=== PATIENT | female | born 1945 | race Two or more races ===

== ENCOUNTER 2022-06-01 14:43 | Inpatient (IN) | payer MEDICARE ==
[~2022-06-01] VITALS: Ht 165.1 cm; Wt 65.8 kg
--- NOTE | 2022-06-01 15:31 | NUR ---
PT IN BED 12 TOLORATING ROOM AIR. C/O SI W/ ANXIETY. AT BEDSIDE. SUICIDE PROCAUTIONS IMPLEMENTED. CONNECTED TO BEDSIDE MONITOR
--- NOTE | 2022-06-01 15:44 | NUR ---
covid swab collected. lab called for fish bait picker.
[2022-06-01 16:05] LABS: BASOPHILS # (AUTO) 0.1 K/uL (0.0-0.2); BASOPHILS % (AUTO) 1.1 % (0.0-2.0); EOSINOPHILS % (AUTO) 0.2 % (0.0-6.0); HEMATOCRIT 43 % (33-45); HEMOGLOBIN 14.2 g/dL (11.5-14.8); LYMPHOCYTES % (AUTO) 15.9 % (20.0-44.0); MEAN CORPUSCULAR HGB CONC 33 g/dl (31.0-36.0); MEAN CORPUSCULAR VOLUME 88 fL (82-100); MONOCYTES # (AUTO) 1.1 K/uL (0.1-1.30); MONOCYTES % (AUTO) 8.8 % (2.0-12.0); NEUTROPHILS # (AUTO) 9.1 K/uL (1.8-8.9); PLATELET COUNT (AUTO) 355 K/uL (150-450); RED BLOOD CELL COUNT(AUTO) 4.81 MIL/uL (4.0-5.2); WHITE BLOOD COUNT (AUTO) 12.2 K/uL (4.3-11.0)
[2022-06-01 16:31] LABS: ALANINE AMINOTRANSFERASE 23 U/L (12-78); ALBUMIN 4.4 g/dL (3.4-5.0); ALKALINE PHOSPHATASE 100 U/L (46-116); ASPARTATE AMINOTRANSFERASE 23 U/L (15-37); BILIRUBIN,DIRECT 0.3 mg/dL (0.0-0.2); BILIRUBIN,TOTAL 1.1 mg/dL (0.2-1.0); CALCIUM, SERUM 10.6 mg/dL (8.5-10.1); CARBON DIOXIDE 30 mmol/L (21-32); CHLORIDE 92 mmol/L (98-107); GLUCOSE 114 mg/dL (74-106); POTASSIUM 3.1 mmol/L (3.5-5.1); SODIUM SERUM 133 mmol/L (136-145); TOTAL PROTEIN, SERUM 7.8 g/dL (6.4-8.2); UREA NITROGEN, BLOOD 23 mg/dL (7-18)
[2022-06-01 16:34] LABS: ACETAMINOPHEN 0 ug/ml (10-30); ALCOHOL, BLOOD < 3 mg/dL (0-0)
[2022-06-01] MEDS ORDERED: POTASSIUM CHLORIDE 20 MEQ TAB.PRT.SR PO ONE ×2 (17:00→18:27)
--- NOTE | 2022-06-01 18:07 | NUR ---
MOVE SHEET SUBMITTED.
--- NOTE | 2022-06-01 18:15 | NUR ---
URINE SAMPLE COLLECTED AND SENT TO LAB
--- NOTE | 2022-06-01 18:42 | NUR ---
ANDREW DAUGHTER [phone]
[2022-06-01 19:23] LABS: BILIRUBIN,URINE NEGATIVE (NEGATIVE); COLOR,URINE YELLOW (YELLOW); LEUKOCYTE ESTERASE ,URINE NEGATIVE (NEGATIVE); NITRITE, URINE NEGATIVE (NEGATIVE); PH,URINE 6.5 (5.0-8.0); PROTEIN,URINE NEGATIVE (NEGATIVE); UGLUCOSE NEGATIVE (NEGATIVE); UROBILINOGEN,URINE 0.2 EU/dL (0.2)
[2022-06-01] MEDS ORDERED: LORAZEPAM 1 MG TABLET ONE (23:16)
[2022-06-01] MEDS ORDERED: LORAZEPAM 1 MG TABLET PO ONE (23:30)
[2022-06-01] MEDS ORDERED: BUPR300T52 PO (23:38)
[2022-06-01] MEDS ORDERED: BUSP10TA35 PO (23:38)
[2022-06-01] MEDS ORDERED: LAMO100T2 PO (23:38)
[2022-06-01] MEDS ORDERED: AMLO10TA4 PO (23:38)
[2022-06-01] MEDS ORDERED: HYDR12.55 PO (23:38)
[2022-06-01] MEDS ORDERED: PRAV40TA3 PO (23:38)
[2022-06-01] MEDS ORDERED: VALB40CA2 PO (23:38)
[2022-06-01] MEDS ORDERED: LEVO112T2 PO (23:38)
[2022-06-01] MEDS ORDERED: LOSA100T31 PO (23:38)
--- NOTE | 2022-06-02 | NUR ---
room [id number]
--- NOTE | 2022-06-02 00:04 | NUR ---
report given to Victor Manuel LOMELI to continue care.
--- NOTE | 2022-06-02 00:32 | NUR ---
Patient wheeled via gurney accompanied by EMT in no distress.
--- NOTE | 2022-06-02 00:35 | NUR ---
GPS ADMISSION NOTE, RECEIVED PATIENT FROM [facility] PATIENT ARRIVED ON THIS UNIT AT 0035 VIA STRETCHER WITH 1 GROUND TRANSPORTATION OPERATOR ESCORT. PATIENT ADMITTED ON A 5150 HOLD FOR GD. PER HOLD PATIENT IS HAVING THOUGHTS OF EXCESSIVE WORRY, IRRITABILITY, AND HAVING THOUGHTS OF WANTING TO . PATIENT IS VISIBLY SHAKING AND HAS BEEN HAVING THOUGHTS OF WANTING TO FREQUENTLY FOR DAYS. PATIENT STATED, " I'M SCARED OF GOING CRAZY ". THE 5150 WAS REVIEWED AND THE DOCUMENTATION IN THE 5150 HOLD APPEARS TO REFLECT THE PRESENTATION OF THE PATIENT. UPON FACE TO FACE ASSESSMENT PATIENT IS NOTED TO BEING ANXIOUS, DISORGANIZED, COOPERATIVE, POLITE, AND NEEDS SOME REDIRECTION. PATIENT IS CURRENTLY LYING IN BED AWAKE, HAS NO S/S OR COMPLAINTS OF PAIN. PATIENT IS DISPLAYING NO S/S OF APPARENT DISTRESS. PATIENT BREATHING IS UNLABORED WITH EQUAL RISE AND FALL OF THE CHEST. PATIENT IS ALERT AND ORIENTATED X 4 ON ROOM AIR. PATIENT ASSISTED WITH TURING AND REPOSITIONING Q2HR AND PRN FOR COMFORT AND CIRCULATION. PATIENT HAS NO NEEDS AT THIS TIME. PATIENT DENIES SUICIDE IDEATIONS AND HOMICIDAL IDEATIONS AT THIS TIME. PATIENT SIGNED ALL PAPERWORK. PATIENT ADVISED OF HER HOLD AND PATIENT RIGHTS BOOKLET GIVEN. PATIENT IS UNDER THE PSYCHIATRIC CARE OF DR. ADDISON AND THE MEDICAL CARE OF DR RODRIGUEZ. PATIENT BELONGINGS WERE INVENTORIED AND CHECKED FOR CONTRABAND. ALL CONTRABAND REMOVED AND STORED IN PATIENT HALLWAY LOCKER. PATIENT ADVANCED DIRECTIVES PREFERENCE, IMMUNIZATIONS QUESTIONER, NECESSARY PAPERWORK COMPLETED. PATIENT REUSED SKIN ASSESSMENT. PATIENT ORIENTATED TO ROOM, FLOOR, AND STAFF WITH ALL QUESTIONS ANSWERED. PATIENT EDUCATED ON THE USE OF THE CALL LOVING. PATIENT BED SIDE RAILS ARE UP X 2 FOR SAFETY. PATIENT BED IS LOCKED, LOW AND I WILL CONTINUE TO MONITOR THIS PATIENT Q 15 MIN WITH THE HELP OF STAFF TO MAINTAIN SAFETY.
[2022-06-02 00:49] VITALS: BP 148/100
[2022-06-02] MEDS ORDERED: MAG HYDROX/AL HYDROX/SIMETH 30 ML UDC PO PRN (01:30)
[2022-06-02] MEDS ORDERED: BLOOD SUGAR DIAGNOSTIC 1 EACH STRIP IN ONE (01:45)
[2022-06-02 02:17] VITALS: BP 148/100
[2022-06-02] MEDS ORDERED: LEVO125T8 PO (02:53)
[2022-06-02] MEDS ORDERED: LEVO112T2 PO (02:54)
[2022-06-02 08:00] VITALS: BP 128/82
[2022-06-02] MEDS: LORAZEPAM 0.5 MG TABLET PO PRN (13:35)
[2022-06-02] MEDS: AMLODIPINE BESYLATE 10 MG TABLET PO SCH (15:00)
[2022-06-02] MEDS ORDERED: LOSARTAN POTASSIUM 50 MG TABLET PO SCH (15:00)
[2022-06-02 16:00] VITALS: BP 100/53
[2022-06-02] MEDS: PSYLLIUM SEED 1 PKT PACKET PO SCH (17:57)
[2022-06-02] MEDS: OXCARBAZEPINE 150 MG TABLET PO SCH (17:57)
--- NOTE | 2022-06-02 19:30 | NUR ---
RN OPENING NOTES RECEIVED PATIENT AWAKE IN BED. PATIENT IS A/O TIMES 3. ABLE TO MAKE NEEDS KNOWN. NO PAIN NOTED. NO SOB NOTED. NO DISTRESS NOTED. NO ANXIETY NOTED. COOPERATIVE. AMBULATES WITH WALKER. ASKING FOR CHOCOLATE PUDDING. PROVIDED FOR THE PATIENT. ALL SAFETY MEASURES IN PLACE. BED LOCKED IN THE LOWEST POSITION. SIDE RAILS UP TIMES 2. WILL CONTINUE TO MONITOR CLOSELY.
[2022-06-02 20:26] VITALS: BP 100/53
[2022-06-03 06:54] LABS: BASOPHILS # (AUTO) 0.1 K/uL (0.0-0.2); BASOPHILS % (AUTO) 0.7 % (0.0-2.0); EOSINOPHILS % (AUTO) 0.5 % (0.0-6.0); HEMATOCRIT 36 % (33-45); HEMOGLOBIN 12.3 g/dL (11.5-14.8); LYMPHOCYTES # (AUTO) 2.2 K/uL (0.8-4.8); LYMPHOCYTES % (AUTO) 23.5 % (20.0-44.0); MEAN CORPUSCULAR HGB CONC 34 g/dl (31.0-36.0); MEAN CORPUSCULAR VOLUME 89 fL (82-100); MONOCYTES # (AUTO) 0.7 K/uL (0.1-1.30); NEUTROPHILS # (AUTO) 6.2 K/uL (1.8-8.9); NEUTROPHILS % (AUTO) 67.3 % (43.0-81.0); PLATELET COUNT (AUTO) 276 K/uL (150-450); RED BLOOD CELL COUNT(AUTO) 4.08 MIL/uL (4.0-5.2); WHITE BLOOD COUNT (AUTO) 9.2 K/uL (4.3-11.0)
[2022-06-03 07:12] LABS: CALCIUM, SERUM 9.8 mg/dL (8.5-10.1); CARBON DIOXIDE 29 mmol/L (21-32); CHLORIDE 100 mmol/L (98-107); CREATININE 1.7 mg/dL (0.6-1.3); GLUCOSE 109 mg/dL (74-106); POTASSIUM 3.2 mmol/L (3.5-5.1); SODIUM SERUM 138 mmol/L (136-145); UREA NITROGEN, BLOOD 31 mg/dL (7-18)
[2022-06-03 07:13] LABS: CHOLESTEROL 145 mg/dL (<200); HDL CHOLESTEROL 71 mg/dL (40-60); LDL 55 mg/dL (0-99); TRIGLYCERIDES 80 mg/dL (30-150)
[2022-06-03] MEDS: LEVOTHYROXINE SODIUM 112 MCG TABLET PO SCH (07:43)
[2022-06-03 08:00] VITALS: BP 142/94
[2022-06-03] MEDS: OXCARBAZEPINE 150 MG TABLET PO SCH ×2 (08:58→17:14)
[2022-06-03] MEDS: ATORVASTATIN 10 MG TABLET PO SCH (08:58)
[2022-06-03] MEDS: AMLODIPINE BESYLATE 10 MG TABLET PO SCH (08:59)
[2022-06-03] MEDS: PSYLLIUM SEED 1 PKT PACKET PO SCH ×2 (08:59→17:14)
[2022-06-03] MEDS: HYDROCHLOROTHIAZIDE 25 MG TABLET PO SCH ×2 (09:00→09:59)
--- NOTE | 2022-06-03 09:23 | NUR ---
ARMANI NOTE HOLD HYDROCHLOROTHIAZIDE DUE TO LOW POTASSIUM 3.2. DR SINGH POTASSIUM CHLORIDE 30MEQ TO BE GIVEN AT 10AM WILL CONTINUE TO MONITOR Addendum: 06/03/22 at 0956 by MILVIA YOUNG RN RN NOTE CLARIFIED IT IS OK TO GIVE MEDICATIONS. MEDICATION WAS GIVEN 09
--- NOTE | 2022-06-03 09:47 | NUR ---
KONSTANTIN Initial Discharge Note: Patient currently resides at home with Nate ([phone]) located at [address] [place] [address]; ([phone]). KONSTANTIN will contact pt's Nate ([phone]) to discuss treatment/discharge plan. KONSTANTIN will work with the pt, family, and MD to help coordinate appropriate discharge.
--- NOTE | 2022-06-03 09:47 | NUR ---
KONSTANTIN Clinical Note: Pt placed on a 5150 hold for GD. Per hold, pt has been having thoughts of wanting to . Patient currently resides at home with Nate ([phone]) located at [address] [place] [address]; ([phone]). SW will contact pt's Nate ([phone]) to discuss treatment/discharge plan.
--- NOTE | 2022-06-03 09:48 | NUR ---
Treatment Plan: Pt suspicious and refused to sign treatment plan.
[2022-06-03] MEDS ORDERED: POTASSIUM CHLORIDE 10 MEQ TABLET.SA PO ONE (10:00)
--- NOTE | 2022-06-03 12:49 | NUR ---
KONSTANTIN Family Contact: KONSTANTIN contacted pt's Nate ([phone]) but the phone number was not ringing. KONSTANTIN will attempt to call again.
[2022-06-03 16:00] VITALS: BP 135/79
[2022-06-03 19:46] VITALS: BP 153/75
[2022-06-03] MEDS: LORAZEPAM 0.5 MG TABLET PO PRN (20:21)
--- NOTE | 2022-06-03 20:50 | NUR ---
RN note: Patient c/o feeling anxious and restless,offered and given Ativan 0.5 mg PO as ordered.
[2022-06-04] MEDS: LEVOTHYROXINE SODIUM 125 MCG TABLET PO SCH (07:32)
[2022-06-04 08:00] VITALS: BP 124/77
[2022-06-04] MEDS: PSYLLIUM SEED 1 PKT PACKET PO SCH ×2 (08:46→17:22)
[2022-06-04] MEDS: AMLODIPINE BESYLATE 10 MG TABLET PO SCH (08:47)
[2022-06-04] MEDS: OXCARBAZEPINE 150 MG TABLET PO SCH ×2 (08:47→12:45)
[2022-06-04] MEDS: ATORVASTATIN 10 MG TABLET PO SCH (08:47)
[2022-06-04] MEDS: HYDROCHLOROTHIAZIDE 25 MG TABLET PO SCH (08:48)
[2022-06-04] MEDS: VENLAFAXINE XR 37.5 MG CAP.SR.24H PO SCH (08:50)
[2022-06-04] MEDS ORDERED: VENLAFAXINE XR 75 MG CAP.SR.24H PO SCH (09:00)
[2022-06-04] MEDS: LORAZEPAM 0.5 MG TABLET PO PRN (14:30)
--- NOTE | 2022-06-04 14:31 | NUR ---
RN- NOTES ATIVAN ADMINISTERED DUE TO INCREASED AGITATION AND ANXIETY.
--- NOTE | 2022-06-04 15:24 | NUR ---
KONSTANTIN Family Contact: KONSTANTIN contacted pt's Nate ([phone]) and discussed treatment/discharge plan. He would want pt to go to a nursing facility.
--- NOTE | 2022-06-04 15:36 | NUR ---
KONSTANTIN SNF Referral: KONSTANTIN sent clinicals to Sari jennings from [facility] for placement ([phone]). KONSTANTIN sent H & P, progress notes, and medication list.
[2022-06-04 16:00] VITALS: BP 120/74
[2022-06-04] MEDS ORDERED: OXCARBAZEPINE 150 MG TABLET PO SCH (17:00)
[2022-06-04 20:07] VITALS: BP 134/79
[2022-06-04] MEDS: ACETAMINOPHEN 325 MG TABLET PO PRN (22:39)
--- NOTE | 2022-06-04 23:12 | NUR ---
RN NOTE; PATIENT REFUSED ALL DUE MEDS,K-DUR,COZAAR,LIPITOR.EXPLAINED BENEFITS X3.STILL REFUSED. Addendum: 06/04/22 at 2317 by MORIAH SANDY RN WRONG CHART SUPPOSED [id number]
[2022-06-05] MEDS: ACETAMINOPHEN 325 MG TABLET PO PRN (05:57)
[2022-06-05] MEDS: LORAZEPAM 0.5 MG TABLET PO PRN ×2 (07:31→16:51)
--- NOTE | 2022-06-05 07:31 | NUR ---
NURSE NOTE: PT STATED THAT SHE IS VERY ANXIOUS AT THIS TIME. REQUESTED ATIVAN. ATIVAN PO ADMINISTERED ORDERED. PT ANNABEL WELL. WILL CONT TO MONITOR.
[2022-06-05 08:00] VITALS: BP 129/78
[2022-06-05] MEDS: PSYLLIUM SEED 1 PKT PACKET PO SCH ×2 (08:15→16:50)
[2022-06-05] MEDS: HYDROCHLOROTHIAZIDE 25 MG TABLET PO SCH (08:21)
[2022-06-05] MEDS: VENLAFAXINE XR 37.5 MG CAP.SR.24H PO SCH (08:21)
[2022-06-05] MEDS: LEVOTHYROXINE SODIUM 112 MCG TABLET PO SCH (08:21)
[2022-06-05] MEDS: ATORVASTATIN 10 MG TABLET PO SCH (08:22)
[2022-06-05] MEDS: OXCARBAZEPINE 150 MG TABLET PO SCH ×3 (08:22→16:51)
[2022-06-05] MEDS: AMLODIPINE BESYLATE 10 MG TABLET PO SCH (08:22)
--- NOTE | 2022-06-05 08:30 | NUR ---
NURSE NOTE: PT CALM AT THIS TIME. ATIVAN EFFECTIVE. WILL CONT TO MONITOR.
--- NOTE | 2022-06-05 08:55 | NUR ---
SNF Contact: SW received a call from Sari jennings from [facility] for placement ([phone]) who stated pt is accepted.
--- NOTE | 2022-06-05 11:00 | NUR ---
NURSE NOTE: LAKESHA RYAN MANAGER MARKETING COMMUNICATION IN TO SEE PT AT THIS TIME. NOTED RASH UNDER BREAST AREA. ORDERED WOUND CONSULT AT THIS TIME. WILL CONT TO MONITOR.
[2022-06-05 16:00] VITALS: BP 117/83
--- NOTE | 2022-06-05 16:51 | NUR ---
NURSE NOTE: PT ANXIOUS AT THIS TIME, REQUESTED ATIVAN. ATIVAN PO ADMINISTERED ORDERED. PT ANNABEL WELL. WILL CONT TO MONITOR.
--- NOTE | 2022-06-05 17:51 | NUR ---
NURSE NOTE: PT CALM AT THIS TIME. ATIVAN EFFECTIVE AT THIS TIME. WILL CONT TO MONITOR.
--- NOTE | 2022-06-05 19:10 | NUR ---
RN notes Pt is resting in bed comfortable. Pt is alert and orientedX2-3, anxious, guarded and cooperative. Pt is able to ambulates with a walker. VS is stable. On room air. No S/S of distress noted. Noted redness under Pt's breast. Per am nurse MD is aware and seen the Pt. Snacks is offered. Reality orientation provided. safety precautions is maintained. will continue to monitor Q 15 mins checks for safety and behavior.
[2022-06-05 20:57] VITALS: BP 129/77
[2022-06-06 08:00] VITALS: BP 139/80
[2022-06-06] MEDS: VENLAFAXINE XR 37.5 MG CAP.SR.24H PO SCH (08:22)
[2022-06-06] MEDS: PSYLLIUM SEED 1 PKT PACKET PO SCH ×2 (08:22→17:12)
[2022-06-06] MEDS: LEVOTHYROXINE SODIUM 125 MCG TABLET PO SCH (08:23)
[2022-06-06] MEDS: ATORVASTATIN 10 MG TABLET PO SCH (08:23)
[2022-06-06] MEDS: OXCARBAZEPINE 150 MG TABLET PO SCH ×3 (08:23→17:12)
[2022-06-06] MEDS: AMLODIPINE BESYLATE 10 MG TABLET PO SCH (08:24)
[2022-06-06] MEDS: HYDROCHLOROTHIAZIDE 25 MG TABLET PO SCH (08:25)
--- NOTE | 2022-06-06 09:11 | NUR ---
Court Notification: SW contacted pt's Nate ([phone]) and notified of 6840 hearing.
--- NOTE | 2022-06-06 09:12 | NUR ---
Court Hearing: Patient's court hearing for 5550 was today and it was upheld for GD.
[2022-06-06 16:00] VITALS: BP 142/86
--- NOTE | 2022-06-06 18:12 | NUR ---
RN-NOTES PATIENT IS VISIBLE IN THE UNIT ,GUARDED,A/O X3 AMBULATORY WITH WALKER.NO ACUTE DISTRESS NOTED. COMPLIANT WITH MEDICATIONS. PATIENT IS COOPERATIVE WITH STAFF . PATIENT PARTICIPATES WITH THE GROUP. AMBULATORY WITH WALKER. ALL NEEDS ATTENDED AND ANTICIPATED. WILL CONT. MONITORING FOR SAFETY AND BEHAVIOR.WILL ENDORSE TO INCOMING NURSE FOR THE CONTINUITY OF CARE.
--- NOTE | 2022-06-06 19:35 | NUR ---
ULTRASOUND TECHNOL NOTES: RECEIVED PATIENT RESTING IN BED.GUARDED,A/O X3 AMBULATORY WITH WALKER.NO ACUTE DISTRESS NOTED.BREATHING EVEN AND NON-LABORED. COMPLIANT WITH MEDICATIONS. PATIENT IS COOPERATIVE WITH STAFF . AMBULATORY WITH WALKER. ALL NEEDS ATTENDED AND ANTICIPATED. WILL CONTINUE MONITORING FOR SAFETY AND BEHAVIOR.
[2022-06-06 20:51] VITALS: BP 150/79
[2022-06-06] MEDS: LORAZEPAM 0.5 MG TABLET PO PRN (23:38)
--- NOTE | 2022-06-06 23:39 | NUR ---
NURSE NOTE: PT ANXIOUS AT THIS TIME, REQUESTED ATIVAN. ATIVAN PO ADMINISTERED ORDERED. PT ANNABEL WELL. WILL CONT TO MONITOR.
--- NOTE | 2022-06-07 01:26 | NUR ---
DRIVER LICENSE REVIEWING OFFICER NOTE: PT CALM AT THIS TIME. ATIVAN EFFECTIVE AT THIS TIME. WILL CONT TO MONITOR.
[2022-06-07 07:09] LABS: CALCIUM, SERUM 9.7 mg/dL (8.5-10.1); CARBON DIOXIDE 28 mmol/L (21-32); CHLORIDE 96 mmol/L (98-107); CREATININE 1.2 mg/dL (0.6-1.3); GLUCOSE 98 mg/dL (74-106); POTASSIUM 3.2 mmol/L (3.5-5.1); SODIUM SERUM 133 mmol/L (136-145); UREA NITROGEN, BLOOD 25 mg/dL (7-18)
--- NOTE | 2022-06-07 07:33 | NUR ---
WOUND CARE CONSULT: PT SLEEPING SOUNDLY AT AT THIS TIME. RECEIVED CONSULT FOR RASH UNDER BREASTFOLDS. PT PREVIOUSLY REFUSED SKIN ASSESSMENT AND PHOTOS. REVIEWED NURSING DOCUMENTATION AND RECOMMENDATIONS MADE FOR SKIN CARE AND PROTECTION. DISCUSSED WITH NURSING STAFF. MD IN AGREEMENT WITH PLAN OF CARE.
[2022-06-07 08:00] VITALS: BP 126/60
[2022-06-07] MEDS: OXCARBAZEPINE 150 MG TABLET PO SCH ×3 (08:15→16:28)
[2022-06-07] MEDS: VENLAFAXINE XR 37.5 MG CAP.SR.24H PO SCH (08:15)
[2022-06-07] MEDS: LEVOTHYROXINE SODIUM 112 MCG TABLET PO SCH (08:15)
[2022-06-07] MEDS: ATORVASTATIN 10 MG TABLET PO SCH (08:16)
[2022-06-07] MEDS: PSYLLIUM SEED 1 PKT PACKET PO SCH ×2 (08:16→16:28)
[2022-06-07] MEDS: AMLODIPINE BESYLATE 10 MG TABLET PO SCH (08:16)
[2022-06-07] MEDS: HYDROCHLOROTHIAZIDE 25 MG TABLET PO SCH (08:16)
[2022-06-07] MEDS: CLOTRIMAZOLE 1% 15 GM TUBE TP SCH ×2 (09:30→16:29)
[2022-06-07] MEDS ORDERED: POTASSIUM CHLORIDE 20 MEQ POWDER PACKET PO ONE (10:00)
[2022-06-07] MEDS: LORAZEPAM 0.5 MG TABLET PO PRN (14:36)
[2022-06-07 16:00] VITALS: BP 132/85
--- NOTE | 2022-06-07 19:48 | NUR ---
DERRICK BOAT LEVER OPERATOR NOTES: RECEIVED PATIENT RESTING IN BED.GUARDED,A/O X3 .ABLE TO MAKE NEEDS KNOWN.AMBULATORY WITH WALKER.NO ACUTE DISTRESS NOTED.BREATHING EVEN AND NON-LABORED. COMPLIANT WITH MEDICATIONS. NO C/O PAIN AT THIS TIME.PATIENT IS COOPERATIVE WITH STAFF . ALL NEEDS ATTENDED AND ANTICIPATED. WILL CONTINUE MONITORING FOR SAFETY AND BEHAVIOR.
[2022-06-07 21:07] VITALS: BP 137/84
[2022-06-08] MEDS: ACETAMINOPHEN 325 MG TABLET PO PRN (05:13)
--- NOTE | 2022-06-08 05:16 | NUR ---
HEALTH INFORMATION TECHNICIAN NOTES:PATIENT C/O PAIN FROM PAIN SCALE 2/3 ADMINISTERED PRN 650MG
--- NOTE | 2022-06-08 06:23 | NUR ---
FITNESS AND WELLNESS DIRECTOR NOTE: PT C/O PAIN ADMINISTERED PRN TYLENOL 650 MG IS EFFECTIVE. WILL CONT TO MONITOR.
[2022-06-08] MEDS: LEVOTHYROXINE SODIUM 125 MCG TABLET PO SCH (07:54)
[2022-06-08 08:00] VITALS: BP 140/83
[2022-06-08] MEDS: OXCARBAZEPINE 150 MG TABLET PO SCH ×3 (08:10→16:24)
[2022-06-08] MEDS: ATORVASTATIN 10 MG TABLET PO SCH (08:10)
[2022-06-08] MEDS: PSYLLIUM SEED 1 PKT PACKET PO SCH ×2 (08:10→16:23)
[2022-06-08] MEDS: VENLAFAXINE XR 37.5 MG CAP.SR.24H PO SCH (08:10)
[2022-06-08] MEDS: HYDROCHLOROTHIAZIDE 25 MG TABLET PO SCH (08:11)
[2022-06-08] MEDS: AMLODIPINE BESYLATE 10 MG TABLET PO SCH (08:11)
[2022-06-08] MEDS: CLOTRIMAZOLE 1% 15 GM TUBE TP SCH ×2 (08:12→16:25)
[2022-06-08] MEDS: MAGNESIUM HYDROXIDE 30 ML UDC PO PRN (09:50)
--- NOTE | 2022-06-08 09:50 | NUR ---
RN-NOTES PATIENT C/O CONSTIPATION, MOM 3OML GIVEN PRN ORDER.
[2022-06-08 16:00] VITALS: BP 133/72
--- NOTE | 2022-06-08 18:37 | NUR ---
RN-NOTES PATIENT IS VISIBLE IN THE UNIT ,CALM,A/O X3 AMBULATORY WITH WALKER.NO ACUTE DISTRESS NOTED. COMPLIANT WITH MEDICATIONS. PATIENT IS COOPERATIVE WITH STAFF . PATIENT PARTICIPATES WITH THE GROUP. ALL NEEDS ATTENDED AND ANTICIPATED. WILL CONT. MONITORING FOR SAFETY AND BEHAVIOR.WILL ENDORSE TO INCOMING NURSE FOR THE CONTINUITY OF CARE.
--- NOTE | 2022-06-08 19:10 | NUR ---
RN notes Pt is resting in bed comfortable. Pt is alert and orientedX2-3, anxious, guarded and cooperative with care. Pt is able to ambulates with a walker. VS is stable. On room air. No S/S of distress noted. NO SOB. Snacks is offered and provided. Pt denies SI/HI at this time. Reality orientation provided. safety precautions is maintained. will continue to monitor Q 15 mins checks for safety and behavior.
[2022-06-08] MEDS: LORAZEPAM 0.5 MG TABLET PO PRN (19:47)
--- NOTE | 2022-06-08 19:50 | NUR ---
RN notes Pt is feeling anxious and requesting meds. Administered ativan/1 tab/po as ordered. safety precautions is maintained. Will continue to monitor.
[2022-06-08 21:38] VITALS: BP 158/93
[2022-06-09] MEDS: ACETAMINOPHEN 325 MG TABLET PO PRN ×2 (01:18→17:08)
--- NOTE | 2022-06-09 01:20 | NUR ---
RN notes Pt is complaining of generalized pain and requesting pain med. administered tylenol as ordered for pain. safety precautions is maintained. will continue to monitor.
[2022-06-09] MEDS: OXCARBAZEPINE 150 MG TABLET PO SCH ×3 (07:50→16:45)
[2022-06-09 08:00] VITALS: BP 122/73
[2022-06-09] MEDS: LEVOTHYROXINE SODIUM 112 MCG TABLET PO SCH (08:23)
[2022-06-09] MEDS: PSYLLIUM SEED 1 PKT PACKET PO SCH ×2 (08:27→16:45)
[2022-06-09] MEDS: VENLAFAXINE XR 37.5 MG CAP.SR.24H PO SCH (08:28)
[2022-06-09] MEDS: ATORVASTATIN 10 MG TABLET PO SCH (08:28)
[2022-06-09] MEDS: HYDROCHLOROTHIAZIDE 25 MG TABLET PO SCH (08:29)
[2022-06-09] MEDS: AMLODIPINE BESYLATE 10 MG TABLET PO SCH (08:30)
[2022-06-09] MEDS: CLOTRIMAZOLE 1% 15 GM TUBE TP SCH ×2 (08:31→17:32)
[2022-06-09 16:00] VITALS: BP 120/62
[2022-06-09 20:28] VITALS: BP 118/77
[2022-06-10] MEDS: ACETAMINOPHEN 325 MG TABLET PO PRN ×2 (02:17→12:52)
--- NOTE | 2022-06-10 02:21 | NUR ---
RN note: Patient c/o body ache;requested and given Tylenol 650 mg PO as ordered for pain.
[2022-06-10 08:00] VITALS: BP 133/74
[2022-06-10] MEDS: PSYLLIUM SEED 1 PKT PACKET PO SCH ×2 (08:03→17:13)
[2022-06-10] MEDS: VENLAFAXINE XR 37.5 MG CAP.SR.24H PO SCH ×2 (08:04→12:44)
[2022-06-10] MEDS: LEVOTHYROXINE SODIUM 112 MCG TABLET PO SCH (08:04)
[2022-06-10] MEDS: OXCARBAZEPINE 150 MG TABLET PO SCH ×3 (08:04→17:13)
[2022-06-10] MEDS: AMLODIPINE BESYLATE 10 MG TABLET PO SCH (08:05)
[2022-06-10] MEDS: ATORVASTATIN 10 MG TABLET PO SCH (08:05)
[2022-06-10] MEDS: HYDROCHLOROTHIAZIDE 25 MG TABLET PO SCH (08:06)
[2022-06-10] MEDS: CLOTRIMAZOLE 1% 15 GM TUBE TP SCH ×2 (08:06→17:14)
--- NOTE | 2022-06-10 12:55 | NUR ---
NURSE NOTE: PT C/O BACK PAIN AT THIS TIME, UNABLE TO RATE. REQUESTED TYL. TYL PO ADMINISTERED ORDERED. PT ANNABEL WELL. WILL CONT TO MONITOR.
--- NOTE | 2022-06-10 13:55 | NUR ---
NURSE NOTE: PT SAYS THAT SHE FEELS BETTER. TYL EFFECTIVE AT THIS TIME. WILL CONT TO MONITOR.
[2022-06-10 16:00] VITALS: BP 132/74
[2022-06-10] MEDS: LORAZEPAM 0.5 MG TABLET PO PRN (17:17)
--- NOTE | 2022-06-10 17:17 | NUR ---
NURSE NOTE: PT FEELING ANXIOUS, REQUESTED ATIVAN AT THIS TIME. ATIVAN PO ADMINISTERED ORDERED. PT ANNABEL WELL. WILL CONT TO MONITOR.
--- NOTE | 2022-06-10 18:17 | NUR ---
NURSE NOTE: PT STATED THAT SHE IS FEELING BETTER. ATIVAN EFFECTIVE AT THIS TIME. WILL CONT TO MONITOR.
[2022-06-10 20:00] VITALS: BP 128/71
[2022-06-11] MEDS: ACETAMINOPHEN 325 MG TABLET PO PRN ×2 (02:34→17:32)
--- NOTE | 2022-06-11 02:35 | NUR ---
Patient c/o body ache,requested and given Tylenol 650 mg PO as ordered.
[2022-06-11 08:00] VITALS: BP 155/102
[2022-06-11] MEDS: PSYLLIUM SEED 1 PKT PACKET PO SCH ×2 (08:49→16:25)
[2022-06-11] MEDS: LEVOTHYROXINE SODIUM 125 MCG TABLET PO SCH (08:49)
[2022-06-11] MEDS: AMLODIPINE BESYLATE 10 MG TABLET PO SCH (08:50)
[2022-06-11] MEDS: HYDROCHLOROTHIAZIDE 25 MG TABLET PO SCH (08:50)
[2022-06-11] MEDS: ATORVASTATIN 10 MG TABLET PO SCH (08:50)
[2022-06-11] MEDS: VENLAFAXINE XR 37.5 MG CAP.SR.24H PO SCH ×2 (08:51→13:11)
[2022-06-11] MEDS: OXCARBAZEPINE 150 MG TABLET PO SCH ×3 (08:51→16:25)
[2022-06-11] MEDS: CLOTRIMAZOLE 1% 15 GM TUBE TP SCH ×2 (08:59→16:21)
[2022-06-11 16:00] VITALS: BP 139/90
--- NOTE | 2022-06-11 17:32 | NUR ---
RN NOTE PT COMPLAINED OF BACK AND NECK PAIN, REQUESTED AND GIVEN TYLENOL 650 MG PO PRN FOR PAIN.
[2022-06-11 20:17] VITALS: BP 136/94
[2022-06-11] MEDS: LORAZEPAM 0.5 MG TABLET PO PRN (22:01)
--- NOTE | 2022-06-11 22:04 | NUR ---
RN note: Patient appears to be restless,anxious;offered and given Ativan 0.5 mg PO as ordered.
[2022-06-12 08:00] VITALS: BP 153/91
[2022-06-12] MEDS: PSYLLIUM SEED 1 PKT PACKET PO SCH ×2 (08:22→16:24)
[2022-06-12] MEDS: AMLODIPINE BESYLATE 10 MG TABLET PO SCH (08:23)
[2022-06-12] MEDS: LEVOTHYROXINE SODIUM 112 MCG TABLET PO SCH (08:23)
[2022-06-12] MEDS: HYDROCHLOROTHIAZIDE 25 MG TABLET PO SCH (08:23)
[2022-06-12] MEDS: OXCARBAZEPINE 150 MG TABLET PO SCH ×3 (08:23→16:24)
[2022-06-12] MEDS: VENLAFAXINE XR 37.5 MG CAP.SR.24H PO SCH ×2 (08:24→12:04)
[2022-06-12] MEDS: ATORVASTATIN 10 MG TABLET PO SCH (08:38)
[2022-06-12] MEDS: ACETAMINOPHEN 325 MG TABLET PO PRN ×2 (09:32→21:42)
[2022-06-12] MEDS: CLOTRIMAZOLE 1% 15 GM TUBE TP SCH ×2 (10:52→16:23)
--- NOTE | 2022-06-12 14:19 | NUR ---
RN-CO: Called Dr Biggs cell phone and left a message for neuro consult.
[2022-06-12 16:00] VITALS: BP 146/83
[2022-06-12] MEDS: LORAZEPAM 0.5 MG TABLET PO PRN ×2 (16:31→23:19)
--- NOTE | 2022-06-12 16:31 | NUR ---
RN-CO: ATIVAN 0.5 MG PO GIVEN FOR ANXIETY.
[2022-06-12 20:15] VITALS: BP 148/82
--- NOTE | 2022-06-12 23:19 | NUR ---
RN note: Patient appears to be restless and anxious. Offered and given Ativan 0.5 mg PO as ordered.
[2022-06-13 08:00] VITALS: BP 127/78
[2022-06-13] MEDS: OXCARBAZEPINE 150 MG TABLET PO SCH ×3 (08:36→17:02)
[2022-06-13] MEDS: LEVOTHYROXINE SODIUM 125 MCG TABLET PO SCH (08:36)
[2022-06-13] MEDS: VENLAFAXINE XR 37.5 MG CAP.SR.24H PO SCH ×2 (08:37→12:21)
[2022-06-13] MEDS: AMLODIPINE BESYLATE 10 MG TABLET PO SCH (08:37)
[2022-06-13] MEDS: PSYLLIUM SEED 1 PKT PACKET PO SCH ×2 (08:37→17:02)
[2022-06-13] MEDS: HYDROCHLOROTHIAZIDE 25 MG TABLET PO SCH (08:38)
[2022-06-13] MEDS: ATORVASTATIN 10 MG TABLET PO SCH (08:38)
--- NOTE | 2022-06-13 10:45 | NUR ---
KONSTANTIN Family Contact: KONSTANTIN contacted pt's Nate ([phone]) and notified that pt is accepted at [facility]. KONSTANTIN explained pt's current status and how she is doing. He was agreeable of pt going to [facility].
[2022-06-13] MEDS: CLOTRIMAZOLE 1% 15 GM TUBE TP SCH ×2 (10:48→17:21)
--- NOTE | 2022-06-13 15:13 | NUR ---
RN-NOTES AROUND 1450 PM PATIENT'S ROOM MATE REPORTED THAT PATIENT IS SITTING ON THE FLOOR. AUTOMATIC TRANSMISSION MECHANIC CAME TO THE ROOM AND FOUND PATIENT SITTING ON THE FLOOR NEXT TO THE ROOM DOOR. PATIENT STATED " I GET UP FROM THE TOILET AND I MISSED MY BALANCE AND FELL SIDEWAY AND HIT MY LEFT ELBOW AND LEFT SIDE OF MY HEAD ON THE FLOOR".HEAD TO TOE ASSESSMENT AND NOTED 2CM X 0.5CM X O CM SKIN TEAR ON LEFT ELBOW WITH SCANT BLOOD. NO BUMP NOTED OR ANY DISCOLORATION NOTED ON THE HEAD.CHARGE NURSE AND AUTOMATIC TRANSMISSION MECHANIC ASSISTED UP AND WALK PATIENT IN TO HER BED. VITAL SIGN TAKEN BP 149/95,P100,R,17,T 98.6 AND 96 % RA.DR. COTTON ( TRADE SHOW SPECIALIST) MADE AWARE WITH ORDERS. DR. ADDISON ( PSYCHIATRIST) AND PATIENT'S ARLENE ALLEN WAS NOTIFIED.WILL CONT. MONITORING FOR ANY ADVERSE CHANGES. Addendum: 06/13/22 at 1643 by ANTHONY POZO RN FOUND PATIENT SITTING IN THE BATHROOM FLOOR NEXT TO THE BATHROOM DOOR.
[2022-06-13 16:00] VITALS: BP 149/95
[2022-06-13 18:24] LABS: THYROID STIMULATING HORMONE 1.521 uIU/mL (0.358-3.74)
--- NOTE | 2022-06-13 18:56 | NUR ---
RN-NOTES PATIENT LYING IN BED AWAKE A/O X3 INTERACTING WITH ,NO ACUTE DISTRESS NOTED.ENCOURAGED PATIENT USE COMMODE NEXT TO HER BED AND CALL FOR HELP WHEN NEEDED.ALL NEEDS ATTENDED AND ANTICIPATED. WILL CONT. MONITORING FOR SAFETY AND BEHAVIOR.WILL ENDORSE TO INCOMING NURSE FOR THE CONTIGUITY OF CARE.
[2022-06-13 20:31] VITALS: BP 136/89
[2022-06-13] MEDS: LORAZEPAM 0.5 MG TABLET PO PRN (23:11)
--- NOTE | 2022-06-13 23:15 | NUR ---
CAPSULE FILLING MACHINE OPERATOR NOTES: GIVEN ATIVAN 0.5 MG PO FOR ANXIETY.
--- NOTE | 2022-06-14 00:15 | NUR ---
ELEMENTARY MATH TUTOR NOTES: ATIVAN EFFECTIVE. PATIENT CALM. NO ANXIETY NOTED.
[2022-06-14] MEDS: TEMAZEPAM 7.5 MG CAPSULE PO PRN (01:16)
--- NOTE | 2022-06-14 01:19 | NUR ---
CHIEF PORT DIRECTOR NOTES: GIVEN PRN RESTORIL 7.5 MG PO FOR INSOMNIA.
--- NOTE | 2022-06-14 02:30 | NUR ---
ROLLOFF TRUCK DRIVER NOTES: RESTORIL EFFECTIVE. PATIENT SLEEPING AT THIS TIME. EASILY AROUSABLE. CALM. NO ACUTE DISTRESS NOTED. WILL CONTINUE MONITOR SAFETY AND BEHAVIOR.
--- NOTE | 2022-06-14 06:33 | NUR ---
MODEL MAKER APPRENTICE NOTES: PATIENT SLEEPING HER ROOM. EASILY AROUSABLE. CALM. BREATHING EVEN AND UNLABORED. NO ACUTE DISTRESS NOTED. NO C/O PAIN AT THIS TIME. PATIENT MEDICATION COMPLIANT. COOPERATIVE. AMBULATORY WITH ASSISTANCE. FALL RISK. NEEDS ANTICIPATED AND ATTENDED. WILL ENDORSE TO ONCOMING SHIFT FOR CONTINUITY OF CARE.
[2022-06-14] MEDS: LEVOTHYROXINE SODIUM 112 MCG TABLET PO SCH (07:59)
[2022-06-14 08:00] VITALS: BP 123/77
[2022-06-14] MEDS: OXCARBAZEPINE 150 MG TABLET PO SCH ×3 (08:01→16:32)
[2022-06-14] MEDS: VENLAFAXINE XR 37.5 MG CAP.SR.24H PO SCH ×2 (08:01→12:20)
--- NOTE | 2022-06-14 09:08 | NUR ---
WOUND CARE CONSULT: PT RESTING. REVIEWED CHART, NURSING DOCUMENTATION AND PHOTOS WHICH INDICATE LEFT ELBOW SKIN TEAR. RECOMMENDATIONS MADE FOR WOUND CARE AND DISCUSSED WITH NURSING STAFF. MD IN AGREEMENT WITH PLAN OF CARE.
[2022-06-14] MEDS: PSYLLIUM SEED 1 PKT PACKET PO SCH ×2 (09:27→16:32)
[2022-06-14] MEDS: ATORVASTATIN 10 MG TABLET PO SCH (09:27)
[2022-06-14] MEDS: CLOTRIMAZOLE 1% 15 GM TUBE TP SCH ×2 (09:28→16:34)
[2022-06-14] MEDS: HYDROCHLOROTHIAZIDE 25 MG TABLET PO SCH (09:28)
[2022-06-14] MEDS: AMLODIPINE BESYLATE 10 MG TABLET PO SCH (09:28)
--- NOTE | 2022-06-14 12:15 | NUR ---
KONSTANTIN Family Contact: KONSTANTIN received a call from daughter Lori ([phone]) who stated that she would want to discuss treatment - medication list with the doctor. KONSTANTIN stated that staff speaks to one family member and is the person to notify Aiyana ([phone]) who had given consent for daughter to speak to the doctor. She reported that she had notified staff last night 06/13, if she can sign a consent to speak to the doctor. KONSTANTIN notified Dr. Mcconnell.
--- NOTE | 2022-06-14 12:19 | NUR ---
KONSTANTIN Note: KONSTANTIN asked pt if she gives permission for the doctor to speak to the doctor and she stated "Yes, I allow my daughter to speak to the daughter".
[2022-06-14 16:00] VITALS: BP 131/80
--- NOTE | 2022-06-14 17:16 | NUR ---
RN-NOTES PATIENT LYING IN BED AWAKE,CALM A/O X3 . PATIENT PARTICIPATED IN THE GROUP FOR SHORT TIME PERIOD,NO ACUTE DISTRESS NOTED.ENCOURAGED PATIENT USE COMMODE NEXT TO HER BED AND CALL FOR HELP WHEN NEEDED.ALL NEEDS ATTENDED AND ANTICIPATED. WILL CONT. MONITORING FOR SAFETY AND BEHAVIOR.WILL ENDORSE TO INCOMING NURSE FOR THE CONTIGUITY OF CARE.
--- NOTE | 2022-06-14 18:38 | NUR ---
RN-NOTES PATIENT'S BROUGHT IN X1 OPEN BOTTLE OF INGREZZA 40MG CAP. VENETIAN BLIND MAKER SEND TO THE PHARMACY.
--- NOTE | 2022-06-14 19:30 | NUR ---
GPS RN NOTE, RECEIVED PATIENT AWAKE AND IN BED, NO S/S OR COMPLAINTS OF PAIN AT THIS TIME. PATIENT IS DISPLAYING NO S/S OF APPARENT DISTRESS AT THIS TIME. PATIENT BREATHING IS UNLABORED WITH EQUAL RISE AND FALL OF THE CHEST. PATIENT IS ALERT AND ORIENTED X 1-2 ON ROOM AIR WITH A SPO2 97%. PATIENT IS COMPLIANT WITH MEDICATIONS, CONFUSED, PARANOID, ANXIOUS AT TIMES, DOES NOT FOLLOW INSTRUCTIONS, AND UNCOOPERATIVE. PATIENT DENIES SUICIDAL AND HOMICIDAL IDEATIONS AT THIS TIME. PATIENT ASSISTED WITH TURNING AND REPOSITIONING Q2HR AND PRN FOR COMFORT AND CIRCULATION. PATIENT HAS NO NEEDS AT THIS TIME. PATIENT EDUCATED ON THE USE OF THE CALL LOVING. PATIENT BED SIDE RAILS UP X 2 FOR SAFETY. PATIENT BED IS LOCKED, LOW, WITH BED ALARM ON. WILL CONTINUE TO MONITOR THIS PATIENT Q15 MINUTES WITH THE HELP OF STAFF TO MAINTAIN SAFETY.
[2022-06-14 20:00] VITALS: BP 142/90
--- NOTE | 2022-06-14 20:20 | NUR ---
RN-NOTES AROUND 2019 BED ALARM SOUNDED FOR THIS PATIENT. RESPONDED TO BED ALARM AND FOUND PATIENT LAYING ON THE FLOOR ON HER RIGHT SIDE. PATIENT STATED " I TRIED TO GET UP BY MYSELF TO GO THE BEDSIDE COMMODE, BUT LOST MY BALANCE AND FELL SIDEWAY AND HIT MY RIGHT ELBOW, RIGHT HIP, AND RIGHT SIDE OF MY FOREHEAD ON THE FLOOR". PATIENT DENIES LOSING CONSCIOUSNESS. HEAD TO TOE ASSESSMENT DONE AND NOTED 3CM X 2CM X 0CM SKIN TEAR ON RIGHT FOREARM WITH SCANT BLOOD. PATIENT HAS BRUISE ON HER RIGHT SIDE OF HER FOREHEAD. FACILITATOR AND TRIAL LAWYER ASSISTED PATIENT UP TO HER BED. VITAL SIGN TAKEN BP 138/92, P94, R,17, T 98.6 AND 94 % RA. APPLIED ICE BAG TO RIGHT FOREHEAD. PAGED [facility] AND INFORMED LAKESHA RYAN NP OF MY FINDINGS. LAKESHA RYAN NP ORDERED HEAD CT WITHOUT CONTRAST, X-RAY PELVIS, X-RAY RIGHT SHOULDER COMPLETE, AND X-RAY RIGHT ELBOW COMPLETE. ALL ORDERS NOTED AND CARRIED OUT. DR. ADDISON ( PSYCHIATRIST) AND PATIENT'S ARLENE ALLEN WAS NOTIFIED. WILL CONTINUE TO MONITORING THIS PATIENT WITH THE HELP OF STAFF.
[2022-06-14] MEDS: ACETAMINOPHEN 325 MG TABLET PO PRN (21:03)
--- NOTE | 2022-06-14 21:03 | NUR ---
GPS RN NOTE, PATIENT HAS A COMPLAINT OF HEADACHE AT 2 OUT OF 10 ON THE PAIN SCALE AND IS REQUESTING TYLENOL AT THIS TIME. PATIENT VITAL SIGNS STABLE. GAVE TYLENOL 650MG PO Q6HR PRN ORDERED. WILL REASSESS PAIN AND I WILL CONTINUE TO MONITOR THIS PATIENT WITH THE HELP OF STAFF.
--- NOTE | 2022-06-14 22:26 | NUR ---
GPS RN NOTE, PATIENT BACK ON FLOOR FROM STAT X-RAY AND CT SCAN. PAGED [facility] AND INFORMED LAKESHA RYAN NP OF STAT X-RAYS AND CT RESULTS. LAKESHA RYAN NP ORDERED SLING FOR RIGHT ARM AND STATED TO HAVE THE ROUNDING INTEREST IN THE MORNING TO ORDER A ORTHO CONSULT. WILL ENDORSE TO A.M. SHIFT NURSE TO INFORM ROUNDING INTEREST TO ORDER ORTHO CONSULT. DR ADDISON MADE AWARE OF SLING ORDER AND GAVE FOR ONE TO ONE SITTER IN THE A.M. ALL ORDERS NOTED AND CARRIED OUT WILL CONTINUE TO MONITOR THIS PATIENT WITH THE HELP OF STAFF.
[2022-06-15 08:00] VITALS: BP 138/86
[2022-06-15] MEDS: AMLODIPINE BESYLATE 10 MG TABLET PO SCH (08:27)
[2022-06-15] MEDS: VENLAFAXINE XR 37.5 MG CAP.SR.24H PO SCH (08:27)
[2022-06-15] MEDS: OXCARBAZEPINE 150 MG TABLET PO SCH ×3 (08:27→16:48)
[2022-06-15] MEDS: ATORVASTATIN 10 MG TABLET PO SCH (08:28)
[2022-06-15] MEDS: LEVOTHYROXINE SODIUM 125 MCG TABLET PO SCH (08:28)
[2022-06-15] MEDS: PSYLLIUM SEED 1 PKT PACKET PO SCH ×2 (08:28→16:48)
[2022-06-15] MEDS: HYDROCHLOROTHIAZIDE 25 MG TABLET PO SCH (08:29)
[2022-06-15] MEDS: CLOTRIMAZOLE 1% 15 GM TUBE TP SCH ×2 (08:57→16:50)
--- NOTE | 2022-06-15 10:15 | NUR ---
RN Notes: Received pt. awake in the gerichair with a sitter. Pt. responsive to staffs. No distress and no agitation noted. Ate ate 50% for breakfast and compliant meds. Pt. assisted back to her bed, morning care rendered and skin ointment applied. Sling applied. Encouraged to verbalize feelings and motivated to attend group activity. Needs attended and will continue on 1:1 for safety.
--- NOTE | 2022-06-15 11:40 | NUR ---
Farideh TIPTON made aware of the X ray result and made aware that per night expansion envelope maker hand to have the rounding horse stud manager in the morning to order ortho consult.
--- NOTE | 2022-06-15 14:20 | NUR ---
Farideh WOOL HAT FINISHER in the unit and seen pt. and said that she will call for Orthopedics doctor.
[2022-06-15 16:20] VITALS: BP 154/78
--- NOTE | 2022-06-15 19:30 | NUR ---
GPS RN NOTE, RECEIVED PATIENT AWAKE AND IN BED, NO S/S OR COMPLAINTS OF PAIN AT THIS TIME. PATIENT IS DISPLAYING NO S/S OF APPARENT DISTRESS AT THIS TIME. PATIENT BREATHING IS UNLABORED WITH EQUAL RISE AND FALL OF THE CHEST. PATIENT IS ALERT AND ORIENTED X 1-2 ON ROOM AIR WITH A SPO2 97%. PATIENT IS COMPLIANT WITH MEDICATIONS, CONFUSED, PARANOID, ANXIOUS AT TIMES, DOES NOT FOLLOW INSTRUCTIONS, AND UNCOOPERATIVE. PATIENT HAS A ONE TO ONE SITTER FOR SAFETY DUE TO HAVING A RIGHT ARM SLING. PATIENT DENIES SUICIDAL AND HOMICIDAL IDEATIONS AT THIS TIME. PATIENT ASSISTED WITH TURNING AND REPOSITIONING Q2HR AND PRN FOR COMFORT AND CIRCULATION. PATIENT HAS NO NEEDS AT THIS TIME. PATIENT EDUCATED ON THE USE OF THE CALL LOVING. PATIENT BED SIDE RAILS UP X 2 FOR SAFETY. PATIENT BED IS LOCKED, LOW, WITH BED ALARM ON. WILL CONTINUE TO MONITOR THIS PATIENT Q15 MINUTES WITH THE HELP OF STAFF TO MAINTAIN SAFETY.
[2022-06-15 20:57] VITALS: BP 155/92
[2022-06-15] MEDS: TEMAZEPAM 7.5 MG CAPSULE PO PRN (21:21)
--- NOTE | 2022-06-15 21:24 | NUR ---
GPS RN NOTE, PATIENT HAS A COMPLAINT OF NOT BEING ABLE TO SLEEP AND IS REQUESTING RESTORIL AT THIS TIME. PATIENT VITAL SIGNS ARE STABLE. GAVE RESTORIL 7.5MG PO HS PRN ORDERED. WILL REASSESS FOR INSOMNIA AND I WILL CONTINUE TO MONITOR THIS PATIENT WITH THE HELP OF STAFF.
[2022-06-15] MEDS: LORAZEPAM 0.5 MG TABLET PO PRN (23:00)
--- NOTE | 2022-06-15 23:00 | NUR ---
GPS RN NOTE, PATIENT HAS A COMPLAINT OF FEELING ANXIOUS AND IS REQUESTING ATIVAN AT THIS TIME. PATIENT VITAL SIGNS ARE STABLE. GAVE ATIVAN 0.5MG PO Q6HR PRN ORDERED. WILL REASSESS FOR ANXIETY AND I WILL CONTINUE TO MONITOR THIS PATIENT WITH THE HELP OF STAFF.
[2022-06-16 08:00] VITALS: BP 135/78
[2022-06-16] MEDS: VENLAFAXINE XR 37.5 MG CAP.SR.24H PO SCH (08:44)
[2022-06-16] MEDS: OXCARBAZEPINE 150 MG TABLET PO SCH ×3 (08:44→17:10)
[2022-06-16] MEDS: LEVOTHYROXINE SODIUM 112 MCG TABLET PO SCH (08:44)
[2022-06-16] MEDS: ATORVASTATIN 10 MG TABLET PO SCH (11:15)
[2022-06-16] MEDS: AMLODIPINE BESYLATE 10 MG TABLET PO SCH (11:15)
[2022-06-16] MEDS: PSYLLIUM SEED 1 PKT PACKET PO SCH ×2 (11:18→17:10)
[2022-06-16] MEDS: HYDROCHLOROTHIAZIDE 25 MG TABLET PO SCH (11:19)
[2022-06-16] MEDS: CLOTRIMAZOLE 1% 15 GM TUBE TP SCH ×2 (11:20→17:11)
[2022-06-16] MEDS: ENSURE ENLIVE CHOC 237 ML CAN PO SCH ×2 (12:00→17:00)
[2022-06-16] MEDS: MAGNESIUM HYDROXIDE 30 ML UDC PO PRN (12:33)
--- NOTE | 2022-06-16 12:33 | NUR ---
NURSE NOTE: PT C/O STOMACH ACHE, SAYING SHE FEELS CONSTIPATED. PT REQUESTED AN ENEMA, BUT INFORMED THAT SHE HAS MILK OF MAG PRESCRIBED. PT REQUESTED MOM. MOM ADMIN ORDERED. PT ANNABEL WELL. WILL CONT TO MONITOR.
[2022-06-16 16:00] VITALS: BP 115/77
[2022-06-16] MEDS: LORAZEPAM 0.5 MG TABLET PO PRN (17:11)
--- NOTE | 2022-06-16 17:15 | NUR ---
NURSE NOTE: PT ANXIOUS AT THIS TIME, REQUESTED ATIVAN. ATIVAN PO ADMINISTERED ORDERED. PT ANNABEL WELL. WILL CONT TO MONITOR.
--- NOTE | 2022-06-16 17:30 | NUR ---
NURSE NOTE: PT HAD 2 LARGE BM DURING SHIFT. MILK OF MAG EFFECTIVE. WILL CONT TO MONITOR.
--- NOTE | 2022-06-16 18:12 | NUR ---
NURSE NOTE: PT CALM AT THIS TIME, ATIVAN EFFECTIVE. WILL CONT TO MONITOR.
[2022-06-16 20:30] VITALS: BP 145/71
[2022-06-16] MEDS: TEMAZEPAM 7.5 MG CAPSULE PO PRN (21:19)
[2022-06-17] MEDS: ACETAMINOPHEN 325 MG TABLET PO PRN ×2 (02:41→21:08)
[2022-06-17] MEDS: LEVOTHYROXINE SODIUM 112 MCG TABLET PO SCH (07:48)
[2022-06-17 08:00] VITALS: BP 130/81
[2022-06-17] MEDS: ENSURE ENLIVE CHOC 237 ML CAN PO SCH ×3 (08:56→17:29)
[2022-06-17] MEDS: OXCARBAZEPINE 150 MG TABLET PO SCH ×3 (08:57→17:29)
[2022-06-17] MEDS: VENLAFAXINE XR 37.5 MG CAP.SR.24H PO SCH (08:57)
[2022-06-17] MEDS: ATORVASTATIN 10 MG TABLET PO SCH (08:57)
[2022-06-17] MEDS: PSYLLIUM SEED 1 PKT PACKET PO SCH ×2 (08:58→17:29)
[2022-06-17] MEDS: HYDROCHLOROTHIAZIDE 25 MG TABLET PO SCH (08:58)
[2022-06-17] MEDS: AMLODIPINE BESYLATE 10 MG TABLET PO SCH (08:59)
[2022-06-17] MEDS: CLOTRIMAZOLE 1% 15 GM TUBE TP SCH ×2 (09:00→17:29)
--- NOTE | 2022-06-17 10:05 | NUR ---
RN-CO:PATIENT IS COOPERATIVE TO CARE. DENIED SUICIDAL IDEATION NOR HALLUCINATIONS. SHE IS A HIGH FALL RISK SO SHE NEEDS A 1:1 SITTER. PT NEEDS ATLEAST 2 PERSON TO WALK HER , HER SLING IN RIGHT ARM IS PROPERLY SET. I ENCOURAGED HER TO VENTILATE HER NEEDS AND FEELINGS. WE WILL CONTINUE TO MONITOR FOR SAFETY.
--- NOTE | 2022-06-17 10:54 | NUR ---
KONSTANTIN Family Contact: KONSTANTIN contacted pt's Aiyana ([phone]) and notified of dc to [facility] tomorrow 06/18. He is agreeable of this.
[2022-06-17 13:08] LABS: BASOPHILS # (AUTO) 0.1 K/uL (0.0-0.2); BASOPHILS % (AUTO) 0.8 % (0.0-2.0); EOSINOPHILS % (AUTO) 0.9 % (0.0-6.0); HEMATOCRIT 37 % (33-45); HEMOGLOBIN 12.6 g/dL (11.5-14.8); LYMPHOCYTES % (AUTO) 14.3 % (20.0-44.0); MEAN CORPUSCULAR HGB CONC 34 g/dl (31.0-36.0); MEAN CORPUSCULAR VOLUME 88 fL (82-100); MONOCYTES # (AUTO) 0.6 K/uL (0.1-1.30); MONOCYTES % (AUTO) 8.6 % (2.0-12.0); NEUTROPHILS % (AUTO) 75.4 % (43.0-81.0); PLATELET COUNT (AUTO) 261 K/uL (150-450); WHITE BLOOD COUNT (AUTO) 6.7 K/uL (4.3-11.0)
[2022-06-17 14:12] LABS: ALANINE AMINOTRANSFERASE 32 U/L (12-78); ALBUMIN 3.2 g/dL (3.4-5.0); ALKALINE PHOSPHATASE 120 U/L (46-116); ASPARTATE AMINOTRANSFERASE 21 U/L (15-37); BILIRUBIN,TOTAL 0.2 mg/dL (0.2-1.0); CALCIUM, SERUM 9.7 mg/dL (8.5-10.1); CARBON DIOXIDE 34 mmol/L (21-32); CHLORIDE 87 mmol/L (98-107); CREATININE 1.2 mg/dL (0.6-1.3); GLUCOSE 101 mg/dL (74-106); POTASSIUM 3.1 mmol/L (3.5-5.1); SODIUM SERUM 122 mmol/L (136-145); TOTAL PROTEIN, SERUM 6.5 g/dL (6.4-8.2); UREA NITROGEN, BLOOD 26 mg/dL (7-18)
--- NOTE | 2022-06-17 15:11 | NUR ---
KONSTANTIN Family Contact: KONSTANTIN received a call from daughter Lori ([phone]) while charge nurse and Jennifer MEJIA were present. KONSTANTIN explained patient's current condition. She had questions about MTHFR testing and patient's medication. She was wondering when pt would receive her ingrezza. KONSTANTIN stated tomorrow 06/17 she will receive the medication, per Jennifer MEJIA. KONSTANTIN stated this magazine writer has contacted [facility] to be attentive with pt at the facility. She is aware of dc and notified of dc day to [facility]. She is agreeable of this. She requested to speak to the psychiatrist, Dr. Mcconnell. SW notified Dr. Mcconnell.
[2022-06-17 16:00] VITALS: BP 122/87
--- NOTE | 2022-06-17 16:46 | NUR ---
RN-CO: DR RODRIGUEZ NOTIFIED REGARDING PT'S LATEST BMP RESULT, AWAITING FOR REPLY.
[2022-06-17] MEDS: VALBENAZINE PO SCH (16:50)
--- NOTE | 2022-06-17 17:58 | NUR ---
RN-CO: DR RODRIGUEZ ORDERED KCL 40 MEQ PO AND 1 LITER OF NS , 150MLS/HR, NOTED AND CARRIED OUT.
[2022-06-17] MEDS ORDERED: POTASSIUM CHLORIDE 20 MEQ TAB.PRT.SR PO ONE (18:00)
[2022-06-17] MEDS ORDERED: IV NS 0.9% 1,000 ML IV ONE (18:30)
--- NOTE | 2022-06-17 18:30 | NUR ---
NURSE NOTE: DR RODRIGUEZ NOTIFIED OF SODIUM LEVEL AT 122. ORDERED FOR IV BOLUS AND SODIUM PO TO BE GIVEN. IV STARTED TO R HAND USING 24 GAUGE INSITE. PT ANNABEL WELL. IV FLUIDS STARTED AT THIS TIME. SODIUM MED ADMINISTERED ORDERED. PT IN STABLE COND. WILL CONT TO MONITOR.
[2022-06-17 20:46] VITALS: BP 133/74
[2022-06-18 07:17] LABS: BASOPHILS # (AUTO) 0.1 K/uL (0.0-0.2); BASOPHILS % (AUTO) 0.9 % (0.0-2.0); EOSINOPHILS % (AUTO) 1.5 % (0.0-6.0); HEMATOCRIT 35 % (33-45); HEMOGLOBIN 12.1 g/dL (11.5-14.8); LYMPHOCYTES # (AUTO) 1.2 K/uL (0.8-4.8); LYMPHOCYTES % (AUTO) 18.4 % (20.0-44.0); MEAN CORPUSCULAR HGB CONC 35 g/dl (31.0-36.0); MEAN CORPUSCULAR VOLUME 88 fL (82-100); MONOCYTES # (AUTO) 0.5 K/uL (0.1-1.30); MONOCYTES % (AUTO) 8.1 % (2.0-12.0); NEUTROPHILS # (AUTO) 4.8 K/uL (1.8-8.9); NEUTROPHILS % (AUTO) 71.1 % (43.0-81.0); PLATELET COUNT (AUTO) 278 K/uL (150-450); RED BLOOD CELL COUNT(AUTO) 3.97 MIL/uL (4.0-5.2); WHITE BLOOD COUNT (AUTO) 6.8 K/uL (4.3-11.0)
[2022-06-18] MEDS: LEVOTHYROXINE SODIUM 125 MCG TABLET PO SCH (07:42)
[2022-06-18 07:45] LABS: CALCIUM, SERUM 9.4 mg/dL (8.5-10.1); CARBON DIOXIDE 30 mmol/L (21-32); CHLORIDE 93 mmol/L (98-107); CREATININE 0.9 mg/dL (0.6-1.3); GLUCOSE 100 mg/dL (74-106); PHOSPHORUS 2.8 mg/dL (2.5-4.9); POTASSIUM 3.8 mmol/L (3.5-5.1); SODIUM SERUM 129 mmol/L (136-145); UREA NITROGEN, BLOOD 26 mg/dL (7-18)
[2022-06-18 08:00] VITALS: BP 143/76
--- NOTE | 2022-06-18 08:04 | NUR ---
SW Discharge Note: Patient will be discharged to [facility] [address] [facility] [address], [place] [address] ([phone]). Please arrange ambulance transportation at 1PM. Spoke with Shira, Admin Coordinator at the facility who states they are ready to accept the patient today. Patients Nate ([phone]) is aware of pts dc. Patient is alert and oriented x3, is unable to plan for self-care at this time, however, is willing to accept care at [facility]. Patient denies any suicidal or homicidal ideation. Patient will follow-up at the facility with Dr. Mcconnell (psychiatrist) [address] [facility] [address], [place] [address]; ([phone]) and (Sales Assistant Institutional Sales) Dr. Alanis [address] [facility] [address], [place] [address]; ([phone]). Patient presents with euthymic mood and congruent affect.
[2022-06-18] MEDS: CLOTRIMAZOLE 1% 15 GM TUBE TP SCH (09:00)
[2022-06-18] MEDS: OXCARBAZEPINE 150 MG TABLET PO SCH ×2 (09:43→13:51)
[2022-06-18] MEDS: VENLAFAXINE XR 37.5 MG CAP.SR.24H PO SCH (09:43)
[2022-06-18] MEDS: PSYLLIUM SEED 1 PKT PACKET PO SCH (09:43)
[2022-06-18] MEDS: ATORVASTATIN 10 MG TABLET PO SCH (09:44)
[2022-06-18] MEDS: AMLODIPINE BESYLATE 10 MG TABLET PO SCH (09:44)
[2022-06-18 09:45] VITALS: BP 143/76
[2022-06-18] MEDS: ENSURE ENLIVE CHOC 237 ML CAN PO SCH ×2 (09:45→12:51)
[2022-06-18] MEDS: HYDROCHLOROTHIAZIDE 25 MG TABLET PO SCH (09:45)
[2022-06-18] MEDS: VALBENAZINE PO SCH (09:47)
[2022-06-18] MEDS: ACETAMINOPHEN 325 MG TABLET PO PRN (13:51)
--- NOTE | 2022-06-18 14:00 | NUR ---
76 year old female discharged to [facility] [id number] [place] [id number] in stable condition. compiant with medications, cooperative with treatment plans. patient denies si/hi and instructed to go to the closest er if developing si/hi. behavior improved, psychiatric tx plan met medical tx plans deferred for continual monitoring. educated pt about after care plan and copy provided. returned personal belongings to patient. medication reconciled with psychiatris and medical clasp machine operator report given to rn at [facility] for continuity of care. pt refused to sign discharge paperwork pt refused photos at time of discharge. pt left unit via ambulance in good condition no distress noted.
== END 2022-06-18 14:00 | DRG 885 ==
LOC: ER 14:56 → GPS 06-02 00:21
PROVIDERS: ADMIT Psychiatry & Neurology Psychosomatic Medicine
DX: F31.30 Bipolar disorder, current episode depressed, mild or moderate severity, unspecified (principal); N18.30 Chronic kidney disease, stage 3 unspecified; N17.1 Acute kidney failure with acute cortical necrosis; R45.851 Suicidal ideations; F41.1 Generalized anxiety disorder; I12.9 Hypertensive chronic kidney disease with stage 1 through stage 4 chronic kidney disease, or unspecified chronic kidney disease; G24.01 Drug induced subacute dyskinesia; E87.6 Hypokalemia; E83.52 Hypercalcemia; D72.829 Elevated white blood cell count, unspecified; B36.8 Other specified superficial mycoses; S00.83XA Contusion of other part of head, initial encounter; W06.XXXA Fall from bed, initial encounter; Y92.230 Patient room in hospital as the place of occurrence of the external cause; M25.521 Pain in right elbow; M25.511 Pain in right shoulder; R10.2 Pelvic and perineal pain; Z20.822 Contact with and (suspected) exposure to COVID-19
CPT/HCPCS: 36415; 70450-TC; 71045-TC; 72190-TC; 73030-TC; 73080-TC; 76770-TC; 80048-TC; 80053-TC; 80061-TC; 80076-TC; 82607-TC; 82962-TC; 83735-TC; 84100-TC; 84443-TC; 85025-TC; 87081-TC; 97112-TC; 97116-TC; 97530-TC; A4223; C9803; G0480; J7030